=== PATIENT | female | born 2000 | race Caucasian/White ===

== ENCOUNTER 2024-08-11 23:30 | Emergency (ER) | payer BC ==
[~2024-08-11] VITALS: Ht 175.3 cm; Wt 69.0 kg
[2024-08-11 23:40] VITALS: O2SAT 97
[2024-08-12] MEDS ORDERED: ACET-2708 MT (00:47)
[2024-08-12] MEDS: ACETAMINOPHEN 325MG TABLET PO ONE (01:06)
[2024-08-12 01:09] VITALS: BP 122/75; PULSE 86; RESP 18; TEMP 36.66960; O2SAT 97
== END 2024-08-12 01:11 | disposition home or self-care (01) ==
LOC: ER 23:51
DX: S42.001A Fracture of unspecified part of right clavicle, initial encounter for closed fracture (principal); W19.XXXA Unspecified fall, initial encounter; Y93.89 Activity, other specified; Y92.89 Other specified places as the place of occurrence of the external cause; Y99.8 Other external cause status
CPT/HCPCS: 29240; 73030; 81025; 99283; A4565